=== PATIENT | male | born 1935 | race Caucasian/White ===

== ENCOUNTER 2018-08-21 20:46 | Emergency (ER) | payer MEDICARE ==
[2018-08-21 22:12] LABS: #Basophils 0.1 thou/uL (0.0-0.2); #Eosinphils 0.2 thou/uL (0.0-0.7); #Monocytes 0.6 thou/uL (0.11-0.59); #Neutrophils 2.7 thou/uL (1.40-6.50); %Basophils 1.5 % (0.0-1.0); %Eosinophils 4.2 % (0.0-10.0); %Lymphocytes 22.7 % (21.0-51.0); %Monocytes 12.3 % (0.0-10.0); %Neutrophils 59.3 % (42.0-75.0); Hemoglobin 15.8 g/dL (14.0-18.0); Mean Corpuscular HGB CONC 34.1 g/dL (32.0-36.0); Mean Corpuscular Hemoglobin 33.3 pg (27.0-31.0); Mean Corpuscular Volume 97.5 fL (78.0-98.0); Platelet Count 180 thou/uL (130-400); RBC Distribution Width 11.6 % (11.5-14.5); Red Blood Cell (RBC) Count 4.75 mill/uL (4.70-6.10); White Blood Cell (WBC) Count 4.6 thou/uL (4.8-10.8)
[2018-08-21 22:31] LABS: ALT (SGPT) 18 U/L (8-55); AST (SGOT) 20 U/L (5-34); Alkaline Phosphatase 72 U/L (40-150); Anion Gap 13 mmol/L (10-20); BUN (Urea Nitrogen) 22 mg/dL (8.4-25.7); CK (CPK) 77 U/L (30-200); Calc. Creatinine Clearance 0 mL/min (70-130); Calcium 9.3 mg/dL (7.8-10.44); Carbon Dioxide 28 mmol/L (23-31); Chloride 103 mmol/L (98-107); Estimated GFR-MDRD 41; Globulin 2.8 g/dL (2.4-3.5); Glucose 96 mg/dL (83-110); Lipase 55 U/L (8-78); Protein, Total 6.8 g/dL (5.8-8.1); Sodium 140 mmol/L (136-145)
--- NOTE | 2018-08-21 22:44 | RAD ---
AP VIEW CHEST: 08/21/18 HISTORY: Hypertension. Two AP views chest obtained on 08/21/18. Comparison made to previous exam from 09/19/16. Two AP views chest demonstrate sternotomy wires seen. Pleural calcification seen. This is most compat ible asbestos exposure. Some areas of patchy density also seen in the right lower lobe possibly repr esenting areas of lung parenchymal scar and/or fibrosis. Correlate with followup radiographs for prog ression. No evidence of pulmonary edema or pleural effusions seen. IMPRESSION: Pleural calcifications most compatible with asbestos exposure. POS: [facility]
== END 2018-08-21 23:05 | disposition home or self-care (01) ==
LOC: ERS 20:46
DX: I10 Essential (primary) hypertension (principal); J94.8 Other specified pleural conditions; N28.9 Disorder of kidney and ureter, unspecified; E78.5 Hyperlipidemia, unspecified; Z79.899 Other long term (current) drug therapy; Z79.82 Long term (current) use of aspirin
CPT/HCPCS: 36415; 71045; 80053; 82550; 83690; 83880; 84484; 85025; 93005; 96374

== ENCOUNTER 2020-10-18 15:24 | Observation (INO) | payer MEDICARE ==
[2020-10-18 16:10] LABS: #Eosinphils 0.2 thou/uL (0.0-0.7); #Lymphocytes 1.2 thou/uL (1.20-3.40); #Monocytes 0.6 thou/uL (0.11-0.59); #Neutrophils 2.9 thou/uL (1.40-6.50); %Basophils 0.8 % (0.0-1.0); %Eosinophils 3.7 % (0.0-10.0); %Lymphocytes 24.1 % (21.0-51.0); %Monocytes 12.4 % (0.0-10.0); %Neutrophils 59.1 % (42.0-75.0); Hemoglobin 14.7 g/dL (14.0-18.0); Mean Corpuscular HGB CONC 35.4 g/dL (32.0-36.0); Mean Corpuscular Volume 98.8 fL (78.0-98.0); Mean Platelet Volume 8.2 fL (7.4-10.4); Platelet Count 184 thou/uL (130-400); RBC Distribution Width 11.5 % (11.5-14.5); Red Blood Cell (RBC) Count 4.21 mill/uL (4.70-6.10); White Blood Cell (WBC) Count 4.9 thou/uL (4.8-10.8)
[2020-10-18 16:32] LABS: Anion Gap 12 mmol/L (10-20); BUN (Urea Nitrogen) 20 mg/dL (8.4-25.7); Calc. Creatinine Clearance 0 mL/min (70-130); Carbon Dioxide 28 mmol/L (23-31); Chloride 103 mmol/L (98-107); Potassium 4.4 mmol/L (3.5-5.1); Sodium 139 mmol/L (136-145)
[2020-10-18 16:33] LABS: ALT (SGPT) 15 U/L (8-55); AST (SGOT) 21 U/L (5-34); Alkaline Phosphatase 86 U/L (40-110); Bilirubin, Total 0.7 mg/dL (0.2-1.2); Globulin 3.3 g/dL (2.4-3.5); Glucose 84 mg/dL (83-110); Lipase 53 U/L (8-78); Protein, Total 7.3 g/dL (5.8-8.1)
[2020-10-18] MEDS ORDERED: Aspirin Chewable 81 MG TAB ONE (17:45)
[2020-10-18 19:37] LABS: Troponin I Less than 0.010 ng/mL (< 0.028)
[2020-10-18] MEDS ORDERED: Morphine 2 MG/ML VIAL SLOW IVP PRN (21:13)
[2020-10-18] MEDS: Nitroglycerin 2% Ointment 1 INCH/1 GM Packet TOP SCH (21:19)
[2020-10-18] MEDS ORDERED: HYDROcodone/Acetaminophen 5/325 mg Tablet PO PRN (22:07)
[2020-10-18] MEDS ORDERED: Ondansetron PF 4 MG/2 ML Vial IVP PRN (22:07)
[2020-10-18] MEDS ORDERED: Acetaminophen 325 MG TAB PO PRN (22:07)
[2020-10-18] MEDS ORDERED: Ondansetron ODT 4 MG TAB PO PRN (22:07)
[2020-10-18] MEDS: Morphine 4 MG/ML VIAL SLOW IVP PRN (22:48)
[2020-10-18 22:49] LABS: Troponin I Less than 0.010 ng/mL (< 0.028)
[2020-10-18] MEDS ORDERED: hydrALAZINE 20 MG/ML VIAL SLOW IVP PRN (23:07)
[2020-10-18] MEDS ORDERED: Labetalol HCl 100 MG/20 ML VIAL SLOW IVP PRN (23:07)
[2020-10-18] MEDS: Nitroglycerin 0.4 MG TAB (25 Tab Bottle) SL PRN ×2 (23:27→23:34)
[2020-10-18 23:29] VITALS: BMI 25.1
[2020-10-19 05:04] LABS: SARS-CoV-2 PCR by NAA Not Detected (NotDetected)
[2020-10-19 05:14] LABS: #Eosinphils 0.2 thou/uL (0.0-0.7); #Monocytes 0.5 thou/uL (0.11-0.59); #Neutrophils 2.8 thou/uL (1.40-6.50); %Basophils 0.7 % (0.0-1.0); %Eosinophils 3.6 % (0.0-10.0); %Lymphocytes 22.5 % (21.0-51.0); %Monocytes 10.7 % (0.0-10.0); %Neutrophils 62.5 % (42.0-75.0); Hemoglobin 13.2 g/dL (14.0-18.0); Mean Corpuscular HGB CONC 35.3 g/dL (32.0-36.0); Mean Corpuscular Hemoglobin 34.6 pg (27.0-31.0); Mean Corpuscular Volume 97.9 fL (78.0-98.0); Platelet Count 166 thou/uL (130-400); RBC Distribution Width 11.4 % (11.5-14.5); White Blood Cell (WBC) Count 4.5 thou/uL (4.8-10.8)
[2020-10-19 05:38] LABS: Anion Gap 11 mmol/L (10-20); BUN (Urea Nitrogen) 17 mg/dL (8.4-25.7); Calc. Creatinine Clearance 44 mL/min (70-130); Calcium 8.3 mg/dL (7.8-10.44); Carbon Dioxide 24 mmol/L (23-31); Chloride 106 mmol/L (98-107); Glucose 104 mg/dL (83-110); Potassium 4.2 mmol/L (3.5-5.1); Sodium 137 mmol/L (136-145)
[2020-10-19] MEDS ORDERED: Enoxaparin Sodium 40 MG/0.4 ML SYRINGE SC SCH (09:00)
[2020-10-19] MEDS: Nitroglycerin 2% Ointment 1 INCH/1 GM Packet TOP SCH ×2 (10:49→13:28)
[2020-10-19] MEDS ORDERED: ADENOSINE 60 MG/20 ML VIAL ONE (11:29)
[2020-10-19] MEDS: Morphine 4 MG/ML VIAL SLOW IVP PRN (14:29)
[2020-10-19 16:18] VITALS: BP 172/77; TEMP 97.4
[2020-10-19] MEDS ORDERED: traMADol HCl 50 MG TAB PO SCH (18:45)
[2020-10-19] MEDS ORDERED: Atorvastatin Calcium 40 MG TAB PO SCH (21:00)
[2020-10-19] MEDS ORDERED: Cyclobenzaprine 10 MG TAB PO SCH (21:00)
[2020-10-19] MEDS ORDERED: Naproxen 500 MG TAB PO SCH (21:00)
[2020-10-19] MEDS ORDERED: Pregabalin 25 MG CAP PO SCH (21:00)
[2020-10-20] MEDS ORDERED: Finasteride 5 MG TAB PO SCH (09:00)
[2020-10-20] MEDS ORDERED: Amlodipine 5 MG TAB PO SCH (09:00)
[2020-10-20] MEDS ORDERED: Vit A,C & E/Lutein/Minerals Tablet PO SCH (09:00)
[2020-10-20] MEDS ORDERED: Aspirin 325 mg Enteric Coated Tablet PO SCH (09:00)
== END 2020-10-19 19:50 | disposition home or self-care (01) ==
LOC: ERS 15:24 → 2SW 17:51
PROVIDERS: ADMIT Hospitalist; ATTEND Hospitalist
DX: R07.89 Other chest pain (principal); I25.10 Atherosclerotic heart disease of native coronary artery without angina pectoris; I13.0 Hypertensive heart and chronic kidney disease with heart failure and stage 1 through stage 4 chronic kidney disease, or unspecified chronic kidney disease; N18.9 Chronic kidney disease, unspecified; I50.30 Unspecified diastolic (congestive) heart failure; E78.5 Hyperlipidemia, unspecified; K21.9 Gastro-esophageal reflux disease without esophagitis; E78.00 Pure hypercholesterolemia, unspecified; I08.1 Rheumatic disorders of both mitral and tricuspid valves; T82.857A Stenosis of other cardiac prosthetic devices, implants and grafts, initial encounter; Z79.82 Long term (current) use of aspirin; Z79.899 Other long term (current) drug therapy; Z95.1 Presence of aortocoronary bypass graft; Z95.5 Presence of coronary angioplasty implant and graft; Z20.822 Contact with and (suspected) exposure to COVID-19
CPT/HCPCS: 71045; 78452; 80048; 80053; 83690; 83880; 84484 ×2; 85025 ×2; 85379; 93005; 93017; 93306; 94760 ×2; 96372; 96374; 96375; 99285; A9500; G0378 ×3; U0003; U0005; 36415; J0153; J0360; J1650; J2270

== ENCOUNTER 2021-02-06 13:20 | Outpatient (CLI) | payer MEDICARE | END 2021-02-06 13:21 | disposition home or self-care (01) | LOC: BICRAD 13:20 | PROVIDERS: ATTEND Nurse Practitioner Family | DX: R06.02 Shortness of breath (principal) | CPT/HCPCS: 71046 ==

== ENCOUNTER 2021-04-09 09:58 | Outpatient (CLI) | payer MEDICARE | END 2021-04-09 09:59 | disposition home or self-care (01) | LOC: RAD 09:58 | PROVIDERS: ATTEND Internal Medicine Critical Care Medicine | DX: R06.00 Dyspnea, unspecified (principal); J90 Pleural effusion, not elsewhere classified; J92.9 Pleural plaque without asbestos | CPT/HCPCS: 71046 ==

== ENCOUNTER 2021-10-23 14:18 | Outpatient (CLI) | payer MEDICARE | END 2021-10-23 14:19 | disposition home or self-care (01) | LOC: BICCT 14:18 | PROVIDERS: ATTEND Nurse Practitioner Family | DX: R06.02 Shortness of breath (principal); R91.8 Other nonspecific abnormal finding of lung field | CPT/HCPCS: 71250 ==

== ENCOUNTER 2022-11-04 08:34 | Outpatient (CLI) | payer MEDICARE | END 2022-11-04 08:35 | disposition home or self-care (01) | LOC: CT 08:34 | PROVIDERS: ATTEND Internal Medicine Critical Care Medicine | DX: J92.0 Pleural plaque with presence of asbestos (principal); I70.0 Atherosclerosis of aorta; J98.4 Other disorders of lung; K80.20 Calculus of gallbladder without cholecystitis without obstruction | CPT/HCPCS: 71250 ==

== ENCOUNTER 2023-03-27 10:58 | Outpatient (CLI) | payer MEDICARE | END 2023-03-27 10:59 | disposition home or self-care (01) | LOC: RAD 10:58 | PROVIDERS: ATTEND Internal Medicine Critical Care Medicine | DX: R06.00 Dyspnea, unspecified (principal); J92.9 Pleural plaque without asbestos | CPT/HCPCS: 71046 ==